=== PATIENT | male | born 1985 | race Two or more races ===

== ENCOUNTER 2019-02-15 12:04 | Emergency (ER) | payer OTHER ==
[~2019-02-15] VITALS: Ht 152.4 cm; Wt 88.8 kg
[2019-02-15 12:14] VITALS: BP 118/72
== END 2019-02-15 13:26 | disposition home or self-care (01) ==
LOC: ED 13:20
DX: Z02.89 Encounter for other administrative examinations (principal)
CPT/HCPCS: 99281

== ENCOUNTER 2020-04-09 03:12 | Emergency (ER) | payer OTHER ==
[~2020-04-09] VITALS: Ht 165.1 cm; Wt 89.0 kg
--- NOTE | 2020-04-09 03:39 | NUR ---
Pt states waking up, feeling SOB, having nausea. Pt denies CP. Pt states LUQ pain and vomiting x 3 times. Pt on monitor, HR 130, lung clear, rapid breathing. Warm blanket given. Will monitor.
[2020-04-09] MEDS ORDERED: SODIUM CHLORIDE 0.9% 1,000ML IVBOLUS ONE ×2 (04:00→05:30)
[2020-04-09 04:12] LABS: BASOPHILS % (AUTO) 1 % (0-1); EOSINOPHILS % (AUTO) 4 % (1-7); LYMPHOCYTES % (AUTO) 22 % (22-44); MEAN CORPUSCULAR HEMOGLOBIN 32.3 pg (27.5-34.5); MEAN CORPUSCULAR HGB CONC 34.9 g/dL (33.2-36.2); MEAN PLATELET VOLUME 7.7 fL (7.4-10.4); MONOCYTES % (AUTO) 7 % (2-9); NEUTROPHILS % (AUTO) 66 % (42-75); PLATELET COUNT 276 x10^3/uL (130-400); RED BLOOD COUNT 4.89 x10^6/uL (4.38-5.82); RED CELL DISTRIBUTION WIDTH 13.3 % (9.4-14.8)
[2020-04-09 04:20] LABS: MD NO
--- NOTE | 2020-04-09 04:57 | NUR ---
Pt ambulated to BR, steady on feet, tolerated well. back to room, on monitor. Pt A&O, states feeling better. Will monitor.
[2020-04-09 05:15] LABS: ALBUMIN 3.8 g/dL (3.4-5.0); ANION GAP 9 mmol/L (5-15); CALCIUM 8.6 mg/dL (8.5-10.1); CHLORIDE 108 mmol/L (98-107)
[2020-04-09 05:27] LABS: CREATININE 1.02 mg/dL (0.7-1.3)
[2020-04-09 05:28] LABS: ALANINE AMINOTRANSFERASE 29 U/L (12-78); ALKALINE PHOSPHATASE 66 U/L (45-117); BILIRUBIN,TOTAL 0.4 mg/dL (0.2-1.0); TOTAL PROTEIN 7.9 g/dL (6.4-8.2); TROPONIN I < 0.015 ng/mL (0.000-0.045)
--- NOTE | 2020-04-09 05:31 | NUR ---
Pt remains tachycardic and tachypneic. 2nd liter of NS infusing. Pt remains A&O, pink and warm. Physican aware of VS. Will monitor.
[2020-04-09] MEDS ORDERED: OMNIPAQUE 350 MG/ML, 75ML BOTTLE ONE (06:12)
--- NOTE | 2020-04-09 06:49 | NUR ---
Pt HR improved after 2nd L of NS. Pt to BR ind, steady on feet. Back to room, on monitor.
--- NOTE | 2020-04-09 06:59 | NUR ---
REPORT FROM MELISA HERNANDEZ.
--- NOTE | 2020-04-09 07:36 | NUR ---
PT RESTING IN BED, STATES HE HAS 7/10 HEAD PAIN. UPDATED VITALS. AWAITING DISPOSITION.CALL LIGHT WITHIN REACH.
[2020-04-09 07:37] VITALS: BP 142/78
[2020-04-09] MEDS ORDERED: MORPHINE SULFATE 4 MG/ML, 1ML ONE (08:37)
[2020-04-09] MEDS ORDERED: MORPHINE SULFATE 4 MG/ML, 1ML IVPush PRN (09:00)
--- NOTE | 2020-04-09 09:23 | NUR ---
PT DENIES ANY PAIN AT THIS TIME. Patient/Caregiver given discharge instructions and they have confirmed that they understand the instructions. Patient ambulatory with steady gait.
== END 2020-04-09 09:24 | disposition home or self-care (01) ==
LOC: ED 05:13 → UNDOADMIN 08:09 → EDIP 08:09 → ED 09:24
DX: R06.03 Acute respiratory distress (principal); Z20.822 Contact with and (suspected) exposure to COVID-19; R06.00 Dyspnea, unspecified; R00.0 Tachycardia, unspecified
CPT/HCPCS: 36415; 71045; 71275; 80053; 83605; 83880; 84145; 84484; 85025; 85379; 87040; 93005; 96360; 96361; 99285; J7030; Q9967; U0003

== ENCOUNTER 2020-10-21 20:44 | Emergency (ER) | payer OTHER ==
[~2020-10-21] VITALS: Ht 165.1 cm; Wt 86.5 kg
[2020-10-21 21:22] VITALS: BP 132/78
== END 2020-10-21 21:50 | disposition home or self-care (01) ==
LOC: ED 21:15
DX: R05 Cough (principal); Z20.822 Contact with and (suspected) exposure to COVID-19; R53.83 Other fatigue
CPT/HCPCS: 99283; U0003; U0005